=== PATIENT | male | born 1945 | race Caucasian/White ===

== ENCOUNTER 2019-06-18 06:01 | Day surgery (SDC) | payer MEDICARE ==
[2019-06-18] VITALS (14 sets, daily range): BP systolic 116–143; BP diastolic 70–86
[~2019-06-18] VITALS: Ht 188 cm; Wt 93.5 kg
[~2019-06-18 06:01] MED LIST: ASPI-555 PO; GABA-529 PO; LISI10TA7 PO
[2019-06-18] MEDS ORDERED: LACTATED RINGERS 1000ML 1,000 ML IV ONE (06:25)
[2019-06-18] MEDS ORDERED: FENTANYL CITRATE PF 50 MCG/1 ML 2ML VIAL ONE (06:58)
[2019-06-18] MEDS ORDERED: MIDAZOLAM HCL 1 MG/ML 2ML VIAL ONE (06:58)
[2019-06-18] MEDS ORDERED: PROPOFOL 10 MG/ML 20ML VIAL IV ONE (07:01)
[2019-06-18] MEDS: CEFAZOLIN SODIUM 1 GM VIAL ONE ×2 (07:12→07:30)
--- NOTE | 2019-06-18 09:15 | NUR ---
PATIENT ARRIVED FROM PACU VIA STRETCHER BY UZMA ANTONIO RN. PATIENT [id number], RESPIRATIONS UNLABORED, VITAL SIGNS STABLE, DENIES ANY PAIN AT THIS TIME. DRESSING TO RIGHT BAND IS DRY/INTACT, NO DRAINAGE OR BLEEDING NOTED.
--- NOTE | 2019-06-18 09:55 | NUR ---
DISCHARGE INSTRUCTIONS PROVIDED TO CAREGIVER (THEO ODONNELL) VIA TELEPHONE. FOLLOW UP APPOINTMENT PROVIDED AND HANDOUTS PROVIDED. INSTRUCTED PATIENT NOT TO REMOVED DRESSING OR GET IT WET. INSTRUCTED PATIENT THAT HE CAN LOOSEN THE WRAP IF IT GETS TO TIGHT. PATIENT VERBALIZED UNDERSTANDING.
--- NOTE | 2019-06-18 10:10 | NUR ---
PATIENT DISCHARGED FROM FACILITY VIA WHEELCHAIR BY NURSE. PATIENT ASSISTED INTO PRIVATE VEHICLE DRIVEN BY CAREGIVER.
== END 2019-06-18 10:10 | disposition home or self-care (01) ==
LOC: DAH 06:01
PROVIDERS: ATTEND Neurological Surgery
DX: G56.01 Carpal tunnel syndrome, right upper limb (principal); I10 Essential (primary) hypertension; Z88.2 Allergy status to sulfonamides; Z79.899 Other long term (current) drug therapy
CPT/HCPCS: 64721; A4213; A4215 ×2; A4216; A4221; A4222; A4223 ×2; A4663; J0690; J2250; J2704; J3010; J7120

== ENCOUNTER → 2020-05-20 | Outpatient (CLI) | payer MEDICARE ==
[~2020-05-20] MED LIST changes: -ASPI-555 PO; +ASPI-556 PO; +LISI10TA24 PO; -LISI10TA7 PO
== END | disposition home or self-care (01) ==
LOC: RAH 13:02
PROVIDERS: ATTEND Internal Medicine
DX: M48.02 Spinal stenosis, cervical region (principal); M47.812 Spondylosis without myelopathy or radiculopathy, cervical region; G95.89 Other specified diseases of spinal cord
CPT/HCPCS: 72141

== ENCOUNTER 2020-06-10 09:00 | Observation (INO) | payer MEDICARE ==
[~2020-06-10] VITALS: Ht 185.4 cm; Wt 92.8 kg
[~2020-06-10 09:00] MED LIST changes: -GABA-529 PO; -LISI10TA24 PO
[2020-06-10 12:16] LABS: BASOPHILS % (AUTO) 1.3 % (0.0-5.0); EOSINOPHILS % (AUTO) 3.7 % (0.0-8.0); HEMATOCRIT 33.3 % (42-54); LYMPHOCYTES % (AUTO) 23.5 % (21.0-51.0); MEAN CORPUSCULAR HEMOGLOBIN 34.7 pg (27.0-33.0); MEAN CORPUSCULAR HGB CONC 33.6 g/dL (32.0-36.0); MEAN CORPUSCULAR VOLUME 103.1 fL (79-99); MONOCYTES % (AUTO) 15.3 % (3.0-13.0); NEUTROPHILS % (AUTO) 55.8 % (40.0-77.0); PLATELET COUNT (AUTO) 182 K/uL (130-400); RED BLOOD CELL COUNT(AUTO) 3.23 MIL/uL (4.50-6.20); RED CELL DISTRIBUTION WIDTH 13.3 % (11.0-15.5); WHITE BLOOD COUNT (AUTO) 4.6 K/uL (4.8-10.8)
[2020-06-15] MEDS ORDERED: CALC-1125 PO (09:29)
[2020-06-15] MEDS ORDERED: ENZA40CA PO (09:29)
[2020-06-15] MEDS ORDERED: PREG150C46 PO (09:29)
[2020-06-15 09:30] VITALS: BP 159/82
[2020-06-16] VITALS (25 sets, daily range): BP systolic 124–152; BP diastolic 70–91
[2020-06-16] MEDS: CEFAZOLIN SODIUM 1 GM VIAL IVP SCH ×4 (06:00→17:02)
[2020-06-16] MEDS ORDERED: LACTATED RINGERS 1000ML 1,000 ML IV ONE (06:30)
[2020-06-16] MEDS ORDERED: GLYCOPYRROLATE 1 MG/5 ML SYRINGE ONE (06:47)
[2020-06-16] MEDS ORDERED: DEXAMETHASONE SOD PHOSPHATE 10MG/ML 1ML VIAL ONE ×2 (06:47→07:15)
[2020-06-16] MEDS ORDERED: SUCCINYLCHOLINE CHLORIDE 20 MG/ML 10 ML VIAL ONE (06:47)
[2020-06-16] MEDS ORDERED: LIDOCAINE PF 2% 5ML ABBOJECT ONE (06:47)
[2020-06-16] MEDS ORDERED: MIDAZOLAM HCL 1 MG/ML 2ML VIAL ONE (06:47)
[2020-06-16] MEDS ORDERED: PROPOFOL 10 MG/ML 20ML VIAL IV ONE (06:47)
[2020-06-16] MEDS ORDERED: ROCURONIUM 10MG/1ML SYR 10 MG/ML ML ONE ×2 (06:48→07:47)
[2020-06-16] MEDS ORDERED: NEOSTIGMINE 5MG/5ML SYR IV ONE (06:48)
[2020-06-16] MEDS ORDERED: ONDANSETRON HCL 4 MG/2 ML VIAL ONE (06:48)
[2020-06-16] MEDS ORDERED: FENTANYL CITRATE PF 50 MCG/1 ML 2ML VIAL ONE ×2 (06:49→08:04)
[2020-06-16] MEDS ORDERED: THROMBIN-JMI 20000 UNIT KIT TP ONE (06:51)
[2020-06-16] MEDS ORDERED: CEFAZOLIN SODIUM 1 GM VIAL ONE (06:51)
[2020-06-16] MEDS ORDERED: ARTIFICIAL TEARS 3.5 GM OINTMENT ONE (07:15)
[2020-06-16] MEDS: BUPIVACAINE/EPI/PF 0.25% 30ML VIAL IJ SCH ×2 (07:15→07:49)
[2020-06-16] MEDS ORDERED: EPHEDRINE SULFATE 50 MG/ML AMPULE ONE (07:49)
[2020-06-16] MEDS ORDERED: MANNITOL 20% 500ML BAG 500 ML IV ONE (07:51)
[2020-06-16] MEDS ORDERED: SODIUM CHLORIDE 0.9% 10 ML VIAL IVP PRN (10:00)
[2020-06-16] MEDS: DEXAMETHASONE SOD PHOSPHATE 4 MG/ML 1ML VIAL IVP SCH ×3 (10:00→21:19)
[2020-06-16] MEDS: LACTATED RINGERS 1000ML 1,000 ML IV SCH ×2 (10:00→22:35)
[2020-06-16] MEDS ORDERED: MORPHINE SULFATE 2 MG/ML 1ML SYG IVP PRN (10:00)
[2020-06-16] MEDS ORDERED: PROMETHAZINE HCL 25 MG/ML 1ML AMPULE IM PRN (10:00)
[2020-06-16] MEDS ORDERED: HYDROCODONE/ACETAMINOPHEN 5/325 MG TAB PO PRN (10:00)
[2020-06-16] MEDS: CALCIUM 600 + VITAMIN D 400 TABLET PO SCH ×2 (10:02→19:49)
[2020-06-16] MEDS: PREGABALIN 75 MG CAPSULE PO SCH (10:05)
[2020-06-17] MEDS: DEXAMETHASONE SOD PHOSPHATE 4 MG/ML 1ML VIAL IVP SCH ×2 (03:03→10:47)
[2020-06-17 03:12] VITALS: BP 139/80
[2020-06-17 08:00] VITALS: BP 144/88
[2020-06-17] MEDS ORDERED: ASPIRIN 81 MG EC TAB PO SCH (09:00)
[2020-06-17] MEDS ORDERED: ENZALUTAMIDE 160 MG PO SCH (09:00)
[2020-06-17] MEDS: CALCIUM 600 + VITAMIN D 400 TABLET PO SCH (10:46)
[2020-06-17] MEDS: PREGABALIN 75 MG CAPSULE PO SCH (10:47)
== END 2020-06-17 12:00 | disposition home or self-care (01) ==
LOC: EDSTATUS 09:00 → DAHIP 06-16 05:47 → 4AH 06-16 12:39
PROVIDERS: ADMIT Neurological Surgery; ATTEND Neurological Surgery
DX: M48.02 Spinal stenosis, cervical region (principal); Z20.822 Contact with and (suspected) exposure to COVID-19; G95.89 Other specified diseases of spinal cord; C61 Malignant neoplasm of prostate; C79.9 Secondary malignant neoplasm of unspecified site; G62.9 Polyneuropathy, unspecified; Z79.82 Long term (current) use of aspirin; Z79.899 Other long term (current) drug therapy
CPT/HCPCS: 20930; 22551; 22854; 36415; 72020; 80051; 85025; 96374; 96375; 96376 ×2; A4215; A4221; A4222; A4223 ×2; A4344; A4510; A4600; A4649; A4663; A6010; C1713; G0378 ×26; J0330; J0690 ×3; J1100 ×6; J2001; J2250; J2405; J2704; J2710; J3010 ×2; J3490 ×4; J7030; J7120 ×2; U0003

== ENCOUNTER → 2020-07-18 | Outpatient (CLI) | payer MEDICARE ==
[~2020-07-18] MED LIST changes: +CALC-1125 PO; +ENZA40CA PO; +PREG150C46 PO
== END | disposition home or self-care (01) ==
LOC: OIH 09:27
PROVIDERS: ATTEND Neurological Surgery
DX: M43.22 Fusion of spine, cervical region (principal)
CPT/HCPCS: 72040

== ENCOUNTER → 2023-05-14 | Outpatient (CLI) | payer MEDICARE ==
[~2023-05-14] MED LIST changes: -PREG150C46 PO; +PREG150C47 PO
== END | disposition home or self-care (01) ==
LOC: SHCH 13:30
PROVIDERS: ATTEND Internal Medicine Cardiovascular Disease
DX: I82.531 Chronic embolism and thrombosis of right popliteal vein (principal); I87.2 Venous insufficiency (chronic) (peripheral); I87.1 Compression of vein
CPT/HCPCS: 93970